=== PATIENT | male | born 1945 | race Hispanic/Latino ===

== ENCOUNTER 2019-08-16 19:27 | Emergency (ER) | payer MEDICARE ==
[2019-08-16] MEDS ORDERED: ALBUTEROL 2.5 MG/3 ML NEBU IH ONE (19:45)
[2019-08-16] MEDS ORDERED: ACETAMINOPHEN 500 MG TAB PO ONE (19:45)
--- NOTE | 2019-08-16 19:50 | Emergency Department Report ---
ED General Adult HPI - General Chief complaint: Upper Respiratory Infection Stated complaint: COUGH Time Seen by Provider: 08/16/19 19:40 Source: patient, RN notes reviewed, old records reviewed Mode of arrival: Stretcher Limitations: No Limitations - History of Present Illness Initial comments: The patient is a 73-year-old gentleman. He has a history of diabetes and bronchitis. He also has a history of hypertension. He is currently on Bactrim double strength twice daily, and currently being treated for acute bronchitis, with duo nebulizer, Mucinex, albuterol, and Tessalon Perles. He was seen at [facility] ago for medical clearance for psychiatric placement. At that time, the patient was complaining of abdominal pain and cough. He had appropriate screening laboratory studies performed, and an x-ray of the chest which was fairly unremarkable. The patient presents to the ER from a local psychiatric facility with a complaint of persistent cough. He has intermittent mucus. He is abdominal wall discomfort and mild headache secondary to coughing. Symptoms are intermittent x1 week, and do not have exacerbating or relieving factors. He denies additional injuries and denies additional complaints. He is not a smoker. -: Gradual, days(s) Location: head, abdomen Severity scale (0 -10): 4 Improves with: none Worsens with: none Associated Symptoms: denies other symptoms - Related Data Allergies Allergy/AdvReac Type Severity Reaction Status Date / Time No Known Allergies Allergy Unverified 08/16/19 19:34 ED Review of Systems ROS: Stated complaint: COUGH Other details as noted in HPI Constitutional: malaise. denies: fever ENT: congestion Respiratory: cough Cardiovascular: denies: syncope Gastrointestinal: abdominal pain. denies: vomiting Genitourinary: as per HPI Musculoskeletal: as per HPI Skin: as per HPI Neurological: as per HPI Psychiatric: as per HPI Hematological/Lymphatic: as per HPI ED Past Medical Hx - Past Medical History Previous Medical History?: Yes Hx Hypertension: Yes Hx Diabetes: Yes Hx Psychiatric Treatment: Yes (Depression) - Surgical History Past Surgical History?: Yes Additional Surgical History: Femur - Social History Smoking Status: Never Smoker Substance Use Type: None ED Physical Exam - General Limitations: No Limitations General appearance: alert, in no apparent distress - Head Head exam: Present: atraumatic, normocephalic - Eye Eye exam: Present: normal appearance, EOMI. Absent: nystagmus - ENT ENT exam: Present: normal exam, normal orophraynx, mucous membranes moist, normal external ear exam, other (Patient has poor dentition) - Neck Neck exam: Present: normal inspection, full ROM. Absent: tenderness, meningismus - Respiratory Respiratory exam: Present: normal lung sounds bilaterally. Absent: respiratory distress - Cardiovascular Cardiovascular Exam: Present: regular rate, normal rhythm, normal heart sounds. Absent: bradycardia, tachycardia, irregular rhythm, systolic murmur, diastolic murmur, rubs, gallop - GI/Abdominal GI/Abdominal exam: Present: soft, normal bowel sounds. Absent: distended, tenderness, guarding, rebound, rigid, pulsatile mass - Rectal Rectal exam: Present: deferred - Extremities Exam Extremities exam: Present: normal inspection, full ROM, other (2+ pulses noted in the bilateral upper and lower extremities. There is no palpable cord. negative Homans sign. Muscular compartments are soft. The pelvis is stable.). Absent: pedal edema, calf tenderness - Back Exam Back exam: Present: normal inspection, full ROM. Absent: tenderness, CVA tenderness (R), CVA tenderness (L), paraspinal tenderness, vertebral tenderness - Neurological Exam Neurological exam: Present: alert, oriented X3, other (There is no facial droop. The tongue is midline. Extraocular movements are intact bilaterally. There is 5 out of 5 strength in bilateral upper and lower extremities. Sensation is intact to light touch bilateral upper and lower extremities. ). Absent: motor sensory deficit - Psychiatric Psychiatric exam: Present: anxious - Skin Skin exam: Present: warm, dry, intact, normal color. Absent: rash ED Course Vital Signs 08/16/19 19:34 Temperature 98.6 F Pulse Rate 73 Respiratory 18 Rate Blood Pressure 135/71 [Left] O2 Sat by Pulse 96 Oximetry ED Medical Decision Making - Medical Decision Making Vital Signs 08/16/19 08/16/19 19:34 19:44 Temperature 98.6 F Pulse Rate 73 Respiratory 18 18 Rate Blood Pressure 135/71 [Left] O2 Sat by Pulse 96 Oximetry Differential diagnosis, including but not limited to: Bronchitis Assessment and plan: 73-year-old gentleman likely experiencing natural history of bronchitis. He is already on appropriate medications at his outpatient psychiatric facility. He is afebrile with reassuring vital signs. His physical examination is unremarkable. He had a thorough and extensive medical work-up less than 1 week ago. Explained to patient natural history of bronchitis. He does not have an emergency medical condition at this time. Critical care attestation.: If time is entered above; I have spent that time in minutes in the direct care of this critically ill patient, excluding procedure time. ED Disposition Clinical Impression: Bronchitis Disposition: [id number] PSY HOSP/PSY UNIT Is pt being admited?: No Does the pt Need Aspirin: No Condition: Stable Instructions: Chronic Bronchitis (ED) Additional Instructions: Symptoms of bronchitis typically take a few weeks, to up to 1-1/2 months to improve/resolve. Please continue the medications that have already been prescribed for the patient. Avoid consumption of tobacco and smoke products. Follow-up with the medical doctor within 1 month. Return to the emergency room right away with new, worsened or different symptoms, or symptoms not present on the initial emergency room visit. At the moment, the patient does not appear to have an immediate medical contraindication to psychiatric admission, evaluation, consultation and place ment. Referrals: [facility] [Provider Group] - 3-5 Days [facility] [Provider Group] - 3-5 Days
[2019-08-16 21:44] VITALS: BP 135/71
== END 2019-08-16 21:44 ==
LOC: ED 19:27
DX: J40 Bronchitis, not specified as acute or chronic (principal); I10 Essential (primary) hypertension; E11.9 Type 2 diabetes mellitus without complications; F32.9 Major depressive disorder, single episode, unspecified; Z98.890 Other specified postprocedural states
CPT/HCPCS: 94640